=== PATIENT | female | born 1995 | race Caucasian/White ===

== ENCOUNTER 2016-11-12 13:03 | Emergency (ER) | payer OTHER ==
[~2016-11-12] VITALS: Ht 177.8 cm; Wt 174.5 kg
[~2016-11-12 13:03] MED LIST: CIPR500T4 PO; HYDR-906 PO; IBUP800T25 PO
[2016-11-12 13:24] VITALS: Ht 177.8 cm; Wt 174.5 kg
[2016-11-12] MEDS ORDERED: SOD CHLORIDE 0.9% 1,000 ML IV ONE (15:00)
[2016-11-12] MEDS ORDERED: METHYLPREDNISOLONE 125 MG INJ IV ONE (15:00)
[2016-11-12] MEDS ORDERED: PENICILLIN G BENZ 1.2 MIL UNIT SYG IM ONE (15:30)
[2016-11-12] MEDS ORDERED: IBUP800T25 PO (17:03)
[2016-11-12] MEDS ORDERED: PRED20TA PO (17:03)
[2016-11-12 17:27] VITALS: BP 134/80; RESP 16
--- NOTE | 2016-11-12 17:27 | ERD ---
ER Documentation Chief Complaint Date/Time DATE: 11/12/16 TIME: 17:[address] x 5 with fever HPI Patient is a 21-year-old morbidly obese female who presents to the ED complaining of sore throat and fever. Patient states that she has had sore throat for 4 days and tactile fever that started last night. She states that she has pain and difficulty swallowing. She has only taking ibuprofen for the pain. She denies cough, headache, dizziness or body aches. She denies chest pain, cough or shortness of breath. She denies leg pain or swelling. She denies recent travel. She denies abdominal pain, nausea, vomiting or diarrhea. ROS All systems reviewed and are negative except as per history of present illness. Medications Home Meds Active Scripts Prednisone* (Prednisone*) 20 Mg Tab, 40 MG PO DAILY for 4 Days, TAB Prov:MARYLOU EGAN PA-C 11/12/16 Ibuprofen* (Motrin*) 800 Mg Tab, 800 MG PO Q6, #30 TAB Prov:MARYLOU EGAN PA-C 11/12/16 Hydrocodone/Acetaminophen ([place] 5-325 Tablet) 1 Each Tablet, 1 TAB PO Q6H Y for PAIN, #7 TAB Prov:EMELIA FLORES PA-C 07/13/16 Ciprofloxacin Hcl* (Ciprofloxacin Hcl*) 500 Mg Tablet, 500 MG PO BID for 7 Days , TAB Prov:EMELIA FLORES PA-C 07/13/16 Ibuprofen* (Motrin*) 800 Mg Tab, 800 MG PO Q6H Y for PAIN AND OR ELEVATED TEMP, #30 TAB Prov:PATRICIO OLIVEROS MD 09/03/15 Allergies Allergies: Coded Allergies: No Known Drug Allergies (Verified Allergy, Unknown, 03/01/14) PMhx/Soc History of Surgery: No Anesthesia Reaction: No Hx Neurological Disorder: No Hx Respiratory Disorders: No Hx Cardiac Disorders: No Hx Psychiatric Problems: No Hx Miscellaneous Medical Probl: Yes (Ovarian Cysts, MORBID OBESITY) Hx Alcohol Use: Yes (1-2BEERS/1XMONTH) Hx Substance Use: No Hx Tobacco Use: No FmHx Family History: No coronary disease, No diabetes, No other Physical Exam Vitals Vital Signs Date Time Temp Pulse Resp B/P Pulse Ox O2 Delivery O2 Flow Rate FiO2 11/12/16 17:27 16 134/80 97 11/12/16 13:24 98.6 96 18 141/83 97 Physical Exam GENERAL: Well-developed, well-nourished morbidely obese female. Appears in mild distress. HEAD: Normocephalic, atraumatic. ENT: Moist mucous membranes. No uvula deviation. No kissing tonsils. Tonsils are enlarged bilaterally, uvula symmetrical. no deviation. exudates on tonsils. Palatal lids are not enlarged or inflamed. NECK: Supple. No lymphadenopathy or thyromegaly. No meningismus. LUNG: Clear to auscultation bilaterally. No rhonchi, wheezing, rales or coarse breath sounds. HEART: Regular rate and rhythm. No murmurs, rubs or gallops. Extremities: Equal pulses bilaterally. No peripheral clubbing, cyanosis or edema. No unilateral leg swelling. NEUROLOGIC: Alert and oriented. Moving all four extremities. 5/5 strength in all extremities. Normal speech. Steady gait. SKIN: Normal color. Warm and dry. No rashes or lesions. Capillary refill < 2 seconds Results 24 hrs Current Medications Medications (Trade) Dose Ordered Sig/Juan Luis Route PRN Reason Start Time Stop Time Status Last Admin Dose Admin Sodium Chloride (NS) 1,000 ml @ 1,000 mls/hr Q1H ONCE IV 11/12/16 15:00 11/12/16 15:59 DC 11/12/16 15:40 Methylprednisolone Sodium Succinate (Solu-Medrol) 125 mg ONCE ONCE IV 11/12/16 15:00 11/12/16 15:03 DC 11/12/16 15:40 Penicillin G Benzathine (Bicillin La) 1,200,000 units ONCE ONCE IM 11/12/16 15:30 11/12/16 15:31 DC 11/12/16 16:27 Procedures/MDM ER COURSE: I kept the patient and/or family informed of laboratory and diagnostic imaging results throughout the emergency room course. PROCEDURES: 1 L IV fluids. Solu-Medrol 125. Penicillin G benzathine 1.2 million IM 1. Patient tolerated medication well. Stated improvement in symptoms. MEDICAL DECISION MAKING: This is a 21-year-old female who presents with sore throat and fever. Vital signs were reviewed. Patient is afebrile. Patient is not hypoxic. Patient likely has strep pharyngitis. I have given patient Solu-Medrol, fluids and penicillin in the ED. Low suspicion for peritonsillar abscess,, mononucleosis, dental abscess. I have low suspicion for peritonsillar abscess as there is no uvula deviation and tonsils are symmetrically enlarged. I have sent a rapid strep test and a throat culture to the lab. Pending results. Low suspicion for pneumonia, PE, pneumothorax, ACS, epiglottitis, obstruction, TB, pertussis DISCHARGE: At this time, patient is stable for discharge and outpatient management with no new complaints during the ER course. Patient was sent home with prednisone and ibuprofen. Patient advised to follow-up to the ED tomorrow for recheck of symptoms.. Patient will be discharged home with instructions to recheck for new or worsening symptoms such as fever, nausea, weakness, LOC and to follow up with primary care in the next 1-2 days. Patient was advised to return to the ER for any new or worsening symptoms. Plan was discussed and patient and/or family understands and agrees. Home instructions were given. Departure Diagnosis: Primary Impression: Strep pharyngitis Condition: Stable Patient Instructions: Pharyngitis, Report Pending Additional Instructions: Call your primary care doctor TOMORROW for an appointment during the next 1-2 days.See the doctor sooner or return here if your condition worsens before your appointment time. Return to the ER tomorrow for recheck. MARYLOU EGAN PA-C Nov 12, 2016 17:27
== END 2016-11-12 17:28 | disposition home or self-care (01) ==
LOC: FTE 13:03
DX: J02.0 Streptococcal pharyngitis (principal); E66.01 Morbid (severe) obesity due to excess calories; Z68.43 Body mass index [BMI] 50.0-59.9, adult
CPT/HCPCS: 87070; 96372; 96374; J0561; J2930; J7030; Z7502

== ENCOUNTER 2017-11-29 17:10 | Emergency (ER) | END 2017-11-29 19:58 | disposition home or self-care (01) ==

== ENCOUNTER 2019-01-12 14:34 | Emergency (ER) | payer OTHER ==
[~2019-01-12] VITALS: Ht 170.2 cm; Wt 201.0 kg
[~2019-01-12 14:34] MED LIST changes: +FIORICET PO; +HYDR-4011 PO; -HYDR-906 PO; -IBUP800T25 PO; +IBUP800T48 PO; +PRED20TA PO
[2019-01-12 14:51] VITALS: Ht 170.2 cm; Wt 201.0 kg
[2019-01-12] MEDS ORDERED: ACETAMINOPHEN 325 MG TAB PO ONE (15:30)
[2019-01-12] MEDS ORDERED: IBUP800T48 PO (16:26)
--- NOTE | 2019-01-12 16:30 | ERD ---
ER Documentation Chief Complaint Chief Complaint LEFT KNEE PAIN WITH RECENT DISLOCATION HPI 23-year-old female presents with left knee pain over the last 1-2 days. She had mild pain yesterday but today after an awkward movement has difficulty ambulating. May have been from sitting to standing. She denies any fall, significant trauma. Denies any fevers, redness. She denies any previous knee problems. She felt that she had mild improvement with rubbing her superior patella area. ROS All systems reviewed and are negative except as per history of present illness. Medications Home Meds Active Scripts Ibuprofen* (Motrin*) 800 Mg Tab, 800 MG PO Q6, #30 TAB Prov:STEFANI BLEVINS MD 01/12/19 Acetamin/Butalbital/Caffeine* (Fioricet*) [id number] Tab, 1 TAB PO Q6H PRN for PAIN, #30 TAB Prov:EMELIA FLORES PA-C 11/29/17 Prednisone* (Prednisone*) 20 Mg Tab, 40 MG PO DAILY for 4 Days, TAB Prov:MARYLOU EGAN PA-C 11/12/16 Ibuprofen* (Motrin*) 800 Mg Tab, 800 MG PO Q6, #30 TAB Prov:MARYLOU EGAN PA-C 11/12/16 Hydrocodone/Acetaminophen ([place] 5-325 Tablet) 1 Each Tablet, 1 TAB PO Q6H PRN for PAIN, #7 TAB Prov:EMELIA FLORES PA-C 07/13/16 Ciprofloxacin Hcl* (Ciprofloxacin Hcl*) 500 Mg Tablet, 500 MG PO BID for 7 Days, TAB Prov:EMELIA FLORES PA-C 07/13/16 Ibuprofen* (Motrin*) 800 Mg Tab, 800 MG PO Q6H PRN for PAIN AND OR ELEVATED TEMP, #30 TAB Prov:PATRICIO OLIVEROS MD 09/03/15 Allergies Allergies: Coded Allergies: No Known Drug Allergies (Verified Allergy, Unknown, 01/12/19) PMhx/Soc History of Surgery: No Anesthesia Reaction: No Hx Neurological Disorder: No Hx Respiratory Disorders: No Hx Cardiac Disorders: Yes (htn) Hx Psychiatric Problems: No Hx Miscellaneous Medical Probl: Yes (Ovarian Cysts, MORBID OBESITY) Hx Alcohol Use: No Hx Substance Use: No Hx Tobacco Use: No FmHx Family History: No diabetes, No coronary disease, No other Physical Exam Vitals Vital Signs Date Temp Pulse Resp B/P (MAP) Pulse Ox O2 O2 Flow FiO2 Time Delivery Rate 01/12/19 99.3 67 18 165/70 98 14:51 (101) Physical Exam Const: No acute distress. Morbidly obese. Head: Atraumatic Eyes: Normal Conjunctiva ENT: Normal External Ears, Nose and Mouth. Neck: Full range of motion. No meningismus. Resp: Clear to auscultation bilaterally Cardio: Regular rate and rhythm, no murmurs Abd: Soft, non tender, non distended. Normal bowel sounds Skin: No petechiae or rashes Back: No midline or flank tenderness. No calf swelling or Homans sign. Mild generalized tenderness in the peripatellar area. No effusion or erythema. No instability. Ext: No cyanosis, or edema Neur: Awake and alert Psych: Normal Mood and Affect Results 24 hrs Current Medications Medications Dose Sig/Juan Luis Start Time Status Last (Trade) Ordered Route PRN Stop Time Admin Dose Reason Admin 650 mg ONCE ONCE 01/12/19 DC 01/12/19 Acetaminophen PO 15:30 01/12/19 15:36 (Tylenol 15:31 Tab) Procedures/MDM X-ray Knee 3V Interpreted by me: Bones: No fracture Joints: No dislocation Foreign body: None impression-mild degenerative changes in the medial compartment. Patient was administered crutches with crutch training. Patient presents with knee pain after awkward movement today. She has no evidence of fracture, dislocation, signs of infection, ischemia or deficits or DVT. Patient may have had patellar subluxation which is currently resolved. Knee immobilization was deferred given patient's body habitus. She will be discharged home with primary care follow-up, orthopedic evaluation for persistent symptoms, recommendations for rest, ice, elevation, primary care follow-up and return precautions. She is advised to consult an orthopedist for persistent symptoms. She was advised she may need authorization from primary doctor for orthopedist visit. Departure Diagnosis: Primary Impression: Knee pain Chronicity: acute Laterality: left Qualified Codes: M25.562 - Pain in left knee Condition: Stable Patient Instructions: Knee Pain, Uncertain Cause, Patellar Dislocation / Subluxation Additional Instructions: X-ray shows mild arthritis. Suspect patellar dislocation/subluxation. Recommend ice, rest, primary care follow-up. Recommend orthopedist for persistent or recurrent symptoms. Recheck sooner for fevers, redness, new or worsening symptoms. May need authorization from primary doctor for orthopedist visit. STEFANI BLEVINS MD Jan 12, 2019 16:30
== END 2019-01-12 16:48 | disposition home or self-care (01) ==
LOC: FTE 14:34
DX: M25.562 Pain in left knee (principal); I10 Essential (primary) hypertension; E66.01 Morbid (severe) obesity due to excess calories
CPT/HCPCS: 73562; Z7502; Z7610